=== PATIENT | male | born 1975 | race Caucasian/White ===

== ENCOUNTER 2021-10-10 09:25 | Emergency (ER) | payer OTHER, SELFPAY ==
--- NOTE | ~2021-10-10 | XR_ITS ---
EXAMINATION: XR KNEE, RIGHT CLINICAL INFORMATION: Pain and swelling COMPARISON: None TECHNIQUE: Four views of the right knee. FINDINGS: Moderate narrowing of the medial joint space with marginal spurring. No fracture, dislocation or destructive lesion. There may be a small joint effusion. Patellar spurring noted. XR/XR knee RT 3V IMPRESSION: Degenerative change noted.
[2021-10-10 09:52] VITALS: BP 148/82; PULSE 75; RESP 16; TEMP 36.9; O2SAT 98; BMI 39.5
--- NOTE | 2021-10-10 11:15 | ED_ITS ---
HPI - Extremity Injury (Lower) General Chief Complaint: Extremity Injury, Lower Stated Complaint: R knee pain Time Seen by Provider: 10/10/21 10:47 Source: patient Mode of arrival: ambulatory History of Present Illness HPI Narrative: 46-year-old male presents to the emergency department with a chief complaint of right knee pain for the past 2 weeks. The patient states that he recently started a new job that requires him to go up and down stairs frequently. He says that today he has right sided knee pain, but he has had left sided knee pain as well. He denies any trauma, falls, or harsh twisting/bending motions. He states he has not taken any pain medication or used compression/ice on his knee. He denies any extremity weakness, numbness, tingling, or parethesias. MD complaint: knee injury Onset (ago): week(s) Related Data Previous Rx's Medication Instructions Recorded acetaminophen 500 mg tablet 500 mg PO Q6H PRN fever or pain 10/10/21 (Tylenol Extra Strength) #14 tabs naproxen 500 mg tablet 500 mg PO BID PRN pain 10 days #20 10/10/21 tabs Allergies Allergy/AdvReac Type Severity Reaction Status Date / Time No Known Allergies Allergy Verified 10/10/21 09:52 Review of Systems Review of Systems: Constitutional: No Weight Loss, No Fever, No Chills ENT/Mouth: No Nasal Congestion, No Hoarseness, No Sore Throat, No Rhinorrhea Cardiovascular: No Chest Pain, No SOB Respiratory: No Cough, No Sputum, No Wheezing Gastrointestinal: No Nausea, No Vomiting, No Diarrhea, No Abdominal pain Genitourinary: No Dysuria, No Urinary Frequency, No Urinary Incontinence, No Urgency Musculoskeletal: + Joint Pain, No Myalgias, + Joint Swelling Skin: No Skin Lesions, No rash Neuro: No Weakness, No Numbness, No Paresthesias Yes all other systems are reviewed and are negative Constitutional: Constitutional: Reports as per [facility] Past Medical History Attestation statement: The following information was validated with the patient. Social History Social History Advance Directives: No Advance Directives Information Provided: No Physical Exam Vital Signs: Vital Signs: Last Vital Signs Temp 98.4 F 10/10/21 09:52 Pulse 75 10/10/21 09:52 Resp 16 10/10/21 09:52 BP 148/82 H 10/10/21 09:52 Pulse Ox 98 10/10/21 09:52 O2 Del Method 10/10/21 09:52 BMI result Body Mass Index 39.5 Const: General: cooperative, healthy appearing and no acute distress Orientation/consciousness: patient oriented x3 Limitations: no limitations HEENT: Head: Yes normal to inspection and Yes atraumatic Ears: hearing grossly normal bilaterally General nose exam: Normal external nose present Face and sinus: Yes normal facial exam Eyes: General: appearance normal, both eyes and all related structures EOM: EOMs intact bilaterally Neck: Neck: Yes normal visual inspection and Yes no meningeal signs Resp: Effort & Inspection: normal respiratory effort and no respiratory distress Auscultation: clear to auscultation bilaterally Cardio: Rate: regular rate Heart sounds: S1 normal heart sound present and S2 normal heart sound present Skin: Rashes: no rashes Wounds: no wounds Neuro: General: patient oriented x3, tone normal and no meningeal signs Gait exam (Neuro): Normal gait present Extrem: Other: +mild swelling to medial aspect of right knee, negative anterior draw test and jazzmine's test General: Yes normal to inspection, Yes full ROM, No no joint enlargement, Yes normal gait and Yes edema Course Course Course Narrative: 11:36 XR/XR knee RT 3V IMPRESSION: Degenerative change noted .Results discussed with patient including worrisome signs and symptoms and strict return precautions, and when to return to the emergency department. They verbalized understanding and feel safe for discharge at this time.. MDM - Extremity Injury (Lower) MDM Narrative Medical decision making narrative: 46-year-old male presents to the emergency department with a chief complaint of right knee pain for the past 2 weeks. Patient with negative anterior drawer and Jazzmine's test. Mild swelling to medial aspect of right knee with slight pain on palpation. ROM intact. NV intact. Plan: -X-Ray of right knee -Compression, ice, and elevation -Ibuprofen as needed for pain Medical Records Attestation: I reviewed the patient's medical records. Lab Data Attestation: I reviewed the patient's lab results. Discharge Plan Discharge Clinical Impression: Acute knee pain Patient Disposition: Home, Self-Care Instructions: Knee Pain (ED) Additional Instructions: Your x-ray does not show any fracture dislocation. Rest. Elevate. Ice. Naproxen as an anti-inflammatory/pain medication, take with food. In addition take Tylenol. Wear Primo wrap for compression/debility. Follow-up with orthopedics as needed Prescriptions: New acetaminophen [Tylenol Extra Strength] 500 mg tablet 500 mg PO Q6H PRN (Reason: fever or pain) Qty: 14 0RF naproxen 500 mg tablet 500 mg PO BID PRN (Reason: pain) 10 Days Qty: 20 0RF Referrals: Physician,None [Primary Care Provider] - Stand Alone Forms: Work/School Release Interventions: ED Discharge Assessment Last Done: 10/10/21 11:39 Discharge Date/Time: 10/10/21 11:40
== END 2021-10-10 11:40 | disposition home or self-care (01) ==
PROVIDERS: Emergency Provider Emergency Medicine Emergency Medical Services
DX: M25.561 Pain in right knee (principal); Z79.899 Other long term (current) drug therapy
CPT/HCPCS: 73562; 99283